=== PATIENT | male | born 1940 | race Caucasian/White ===

== ENCOUNTER 2019-01-12 07:37 | Day surgery (SDC) | payer MEDICARE ==
[2019-01-12] MEDS ORDERED: Propofol 200 MG/20 ML SDV IV ONE (07:38)
[2019-01-12] MEDS ORDERED: Sodium Chloride 0.9% 10 ML Syringe FLUSH PRN (09:00)
[2019-01-12] MEDS ORDERED: Lactated Ringers 1,000 ML IV SCH (09:00)
--- NOTE | 2019-01-12 10:03 | PCM.OPNOTE ---
- General Post-Op/Procedure Note Date of Surgery/Procedure: 01/12/19 Operative Procedure(s): c scope with biopsy Findings: ascending colon polyp Pre Op Diagnosis: heme + stools Post-Op Diagnosis: ascending colon polyp Anesthesia Technique: MAC Primary Surgeon: Alex Smith Anesthesia Provider: Pelon Champion Pathology: colon polyp Complications: None Condition: Good Free Text/Narrative:: see dictation
--- NOTE | 2019-01-12 16:17 | OR ---
DATE OF OPERATION: 01/12/2019 SURGEON: Alex Smith MD PROCEDURE PERFORMED: Colonoscopy, cold forceps biopsy. PREOPERATIVE DIAGNOSIS: Heme-positive stools. POSTOPERATIVE DIAGNOSIS: Ascending colon polyp. INDICATIONS FOR PROCEDURE: This is a 78-year-old white male, recently found to have a heme-positive stool on physical exam. He was offered and accepted colonoscopy. DESCRIPTION OF OPERATION: After an excellent IV sedation was administered, digital rectal exam was performed. No marked abnormality was noted. Flexible colonoscope was inserted and advanced without difficulty to the cecum. The prep was excellent. The following findings were noted: 1. Ascending colon: Small polypoid lesion, biopsied with cold biopsy forceps and sent for permanent. 2. Transverse colon: Unremarkable. 3. Descending colon: Unremarkable. 4. Sigmoid and rectum: Unremarkable. Colon was deflated and the scope was removed. The patient tolerated the procedure well and was taken to the recovery room in good condition. Results by letter. /[id number] MEJIA/ARIANNE
== END 2019-01-12 10:34 | disposition home or self-care (01) ==
LOC: FB.SDS 07:37
PROVIDERS: ATTEND Surgery
DX: D12.2 Benign neoplasm of ascending colon (principal); K21.9 Gastro-esophageal reflux disease without esophagitis; E11.69 Type 2 diabetes mellitus with other specified complication; E78.5 Hyperlipidemia, unspecified; I10 Essential (primary) hypertension; Z88.0 Allergy status to penicillin; Z88.4 Allergy status to anesthetic agent; Z79.4 Long term (current) use of insulin; Z79.02 Long term (current) use of antithrombotics/antiplatelets
CPT/HCPCS: 45380; 82962; 88305; J2704; J7120; 00812-QZ